=== PATIENT | male | born 1965 | race Caucasian/White ===

== ENCOUNTER 2018-05-13 18:48 | Emergency (ER) | payer BC ==
--- NOTE | 2018-05-13 19:34 | EDPHY ---
H & P Time Seen by Provider: 05/13/18 18:50 HPI/ROS: 52-year-old male presents complaining of dog bite to his nose. He states he had just [place] and was greeted by his 16-week-old puppy and in his excitement bit him on the nose. He believes this was entirely accidental, the dog has shown no signs of aggression. Review of systems As per HPI General no fever no chills no weakness HEENT no eye pain no eye discharge. No eye redness, no sore throat Respiratory no cough, no shortness of breath Cardiac no chest pain, no peripheral edema GI no abdominal pain, no diarrhea, no constipation, no nausea, no vomiting no flank pain, no hematuria, no dysuria Musculoskeletal no myalgias, no joint pain Heme no easy bruising, no easy bleeding Endo no polyuria, no polydipsia Skin no rashes, no pruritus Neuro no syncope, no dizziness, no headaches Psych is no suicidal ideation, no homicidal ideation Past Medical/Surgical History: Non contributory Social History: Alcohol socially Smoking Status: Never smoked Physical Exam: 52-year-old male alert and oriented no acute distress nontoxic appearance, afebrile Atraumatic normocephalic Near Right nostril at superior aspect of entrance to nostril a 2 mm laceration, non gaping No septal involvement Neck supple No respiratory distress No other signs of trauma Constitutional: Initial Vital Signs Temperature (C) 36.9 C 05/13/18 18:59 Heart Rate 89 05/13/18 18:59 Respiratory Rate 16 05/13/18 18:59 Blood Pressure 156/111 H 05/13/18 18:59 O2 Sat (%) 96 05/13/18 18:59 O2 Delivery Mode Room Air Allergies/Adverse Reactions: ciprofloxacin [From Cipro] Allergy (Intermediate, Verified 05/13/18 18:59) Other-Enter Comments ciprofloxacin HCl [From Cipro] Allergy (Intermediate, Verified 05/13/18 18:59) Other-Enter Comments Penicillins Allergy (Intermediate, Verified 05/13/18 18:59) Rash Home Medications: Medication Instructions Recorded Doxycycline Hyclate 100 mg PO BID #14 tab 05/13/18 Medical Decision Making Procedures: Procedure note-laceration The wound was cleansed with baby shampoo and saline. Dermabond skin adhesive used to close wound Patient tolerated procedure well. ED Course/Re-evaluation: Patient seen and evaluated for laceration to nose. Wound cleansed and closed with Dermabond Impression Dog bite to nose Plan Wound FPC on doxycycline for prophylaxis for pasteurella - Data Points Medications Given: Discontinued Medications Doxycycline Hyclate (Vibramycin 100 Mg Prepack#2) 1 btl TAKEHOME EDNOW ONE Stop: 05/13/18 19:46 Last Admin: 05/13/18 19:54 Dose: 1 btl Departure - Departure Disposition: Home, Routine, Self-Care Clinical Impression: Laceration of nose Condition: Good Instructions: Animal Bite (ED), Skin Adhesive Care (ED), Facial Laceration (ED) Referrals: Larissa Begum [Primary Care Provider] - As per Instructions Prescriptions: Doxycycline Hyclate 100 mg PO BID #14 tab
[2018-05-13] MEDS ORDERED: DOXYCYCLINE 100 MG PREPACK#2 BTL TAKEHOME ONE (19:45)
[2018-05-13 19:54] VITALS: BP 142/88
== END 2018-05-13 19:55 | disposition home or self-care (01) ==
LOC: CED 18:48
PROC: 0HQ1XZZ Repair Face Skin, External Approach (ICD-10-PCS; principal; 2018-05-13)
DX: S01.21XA Laceration without foreign body of nose, initial encounter (principal); W54.0XXA Bitten by dog, initial encounter; Y92.019 Unspecified place in single-family (private) house as the place of occurrence of the external cause